=== PATIENT | female | born 1945 | race Caucasian/White ===

== ENCOUNTER → 2017-11-17 | Outpatient (CLI) | payer OTHER | END | disposition home or self-care (01) | LOC: NUCLEAR 10:30 | DX: I20.1 Angina pectoris with documented spasm (principal) ==

== ENCOUNTER 2021-05-04 15:14 | Outpatient (CLI) | payer OTHER | END 2021-05-04 15:23 | disposition home or self-care (01) | LOC: RAD 15:14 | DX: G45.9 Transient cerebral ischemic attack, unspecified (principal) | CPT/HCPCS: 70551 ==

== ENCOUNTER 2021-09-13 19:22 | Inpatient (IN) | payer OTHER ==
[~2021-09-13] VITALS: Ht 170.2 cm; Wt 61.7 kg
[2021-09-15] MEDS ORDERED: BUPROPION XL150 MG (08:03)
[2021-09-15] MEDS ORDERED: CLONAZEPAM0.5 MG (08:04)
[2021-09-15] MEDS ORDERED: ATORVASTATIN CA20 MG (08:04)
== END 2021-09-24 18:39 | disposition home or self-care (01) | DRG 69 ==
LOC: ER 19:22 → MEDJ 09-14 15:09 → SEC-K 09-14 18:22 → MEDJ 09-15 16:26
PROVIDERS: ADMIT Internal Medicine; ATTEND Internal Medicine
PROC: 8E0ZXY6 Isolation (ICD-10-PCS; 2021-09-14)
PROC: XW033E5 Introduction of Remdesivir Anti-infective into Peripheral Vein, Percutaneous Approach, New Technology Group 5 (ICD-10-PCS; 2021-09-16)
PROC: 0BBC3ZX Excision of Right Upper Lung Lobe, Percutaneous Approach, Diagnostic (ICD-10-PCS; principal; 2021-09-21)
PROC: 0W993ZZ Drainage of Right Pleural Cavity, Percutaneous Approach (ICD-10-PCS; 2021-09-21)
DX: G45.9 Transient cerebral ischemic attack, unspecified (principal); U07.1 COVID-19; G93.49 Other encephalopathy; G81.93 Hemiplegia, unspecified affecting right nondominant side; C78.01 Secondary malignant neoplasm of right lung; J90 Pleural effusion, not elsewhere classified; N39.0 Urinary tract infection, site not specified; F32.A Depression, unspecified; R41.82 Altered mental status, unspecified
CPT/HCPCS: 70545

== ENCOUNTER 2021-10-13 07:37 | Outpatient (CLI) | payer OTHER ==
[~2021-10-13 07:37] MED LIST: ATORVASTATIN CA20 MG; BUPROPION XL150 MG; CLONAZEPAM0.5 MG
== END 2021-10-13 07:40 | disposition home or self-care (01) ==
LOC: NUCLEAR 07:37
PROVIDERS: ATTEND Internal Medicine Hematology & Oncology
DX: C50.411 Malignant neoplasm of upper-outer quadrant of right female breast (principal); C78.01 Secondary malignant neoplasm of right lung; Z17.0 Estrogen receptor positive status [ER+]
CPT/HCPCS: 78815; A9552

== ENCOUNTER 2022-09-29 08:13 | Outpatient (CLI) | payer OTHER | END 2022-09-29 08:14 | disposition home or self-care (01) | LOC: NUCLEAR 08:13 | PROVIDERS: ATTEND Internal Medicine Hematology & Oncology | DX: C50.411 Malignant neoplasm of upper-outer quadrant of right female breast (principal); Z17.0 Estrogen receptor positive status [ER+]; C78.00 Secondary malignant neoplasm of unspecified lung | CPT/HCPCS: 78815; A9552 ==

== ENCOUNTER 2023-09-26 08:17 | Outpatient (CLI) | payer OTHER | END 2023-09-26 08:18 | disposition home or self-care (01) | LOC: NUCLEAR 08:17 | DX: R60.9 Edema, unspecified (principal) ==

== ENCOUNTER → 2023-09-29 08:02 | Outpatient (CLI) | payer OTHER | END | disposition home or self-care (01) | LOC: NUCLEAR 09-27 08:00 | PROVIDERS: ATTEND Internal Medicine Hematology & Oncology | DX: C50.411 Malignant neoplasm of upper-outer quadrant of right female breast (principal); C78.01 Secondary malignant neoplasm of right lung; J91.0 Malignant pleural effusion; Z17.0 Estrogen receptor positive status [ER+] | CPT/HCPCS: 78815; A9552 ==

== ENCOUNTER 2023-11-17 11:06 | Outpatient (CLI) | payer OTHER | END 2023-11-17 11:07 | disposition home or self-care (01) | LOC: MRI 11:06 | PROVIDERS: ATTEND Psychiatry & Neurology Clinical Neurophysiology | DX: G30.1 Alzheimer's disease with late onset (principal); F01.50 Vascular dementia, unspecified severity, without behavioral disturbance, psychotic disturbance, mood disturbance, and anxiety | CPT/HCPCS: 70551 ==

== ENCOUNTER 2025-01-30 07:31 | Outpatient (CLI) | payer OTHER | END 2025-01-30 07:34 | disposition home or self-care (01) | LOC: NUCLEAR 07:31 | PROVIDERS: ATTEND Internal Medicine Hematology & Oncology | DX: C50.411 Malignant neoplasm of upper-outer quadrant of right female breast (principal); C78.01 Secondary malignant neoplasm of right lung; C77.1 Secondary and unspecified malignant neoplasm of intrathoracic lymph nodes | CPT/HCPCS: 78814; A9552 ==